=== PATIENT | female | born 1980 | race Caucasian/White ===

== ENCOUNTER 2016-04-21 05:21 | Day surgery (SDC) | payer OTHER ==
[2016-04-19 12:47] LABS: HEMATOCRIT 40.5 % (36.0-47.0); HEMOGLOBIN 13.4 g/dL (12.0-15.5); HGB HCT DIFFERENCE -0.3; MEAN CORPUSCULAR HEMOGLOBIN 27.1 pg (27.0-33.4); MEAN CORPUSCULAR HGB CONC 33.1 g/dL (32.0-36.0); MEAN CORPUSCULAR VOLUME 82 fl (80-97); RED BLOOD COUNT 4.93 10^6/uL (3.72-5.28); RED CELL DISTRIBUTION WIDTH 14.4 % (11.5-14.0); WHITE BLOOD COUNT 7.7 10^3/uL (4.0-10.5)
[2016-04-19 13:09] LABS: ALANINE AMINOTRANSFERASE 31 U/L (9-52); ALKALINE PHOSPHATASE 73 U/L (38-126); ANION GAP 12 (5-19); ASPARTATE AMINO TRANSFERASE 30 U/L (14-36); BILIRUBIN,TOTAL 0.5 mg/dL (0.2-1.3); BLOOD UREA NITROGEN 9 mg/dL (7-20); CALCIUM 9.5 mg/dL (8.4-10.2); CARBON DIOXIDE 27 mmol/L (22-30); CHLORIDE 105 mmol/L (98-107); CREATININE RESULT 0.77 mg/dL (0.52-1.25); GLUCOSE 80 mg/dL (75-110); POTASSIUM 4.5 mmol/L (3.6-5.0); SODIUM 143.5 mmol/L (137-145); TOTAL PROTEIN 7.2 g/dL (6.3-8.2)
[~2016-04-21 05:21] MED LIST: CEFAZOLIN SODIUM 1 GM in DEXTROSE 5%-WATER 50 ML IV PRN; LACTATED RINGERS 1000 ML IV PRN
[2016-04-21 06:12] LABS: APPEARANCE,URINE SLIGHTLY-CLOUDY; BILIRUBIN,URINE NEGATIVE (NEGATIVE); GLUCOSE, URINE NEGATIVE (NEGATIVE); KETONES,URINE NEGATIVE (NEGATIVE); LEUKOCYTE ESTERASE,URINE MODERATE (NEGATIVE); NITRITE,URINE NEGATIVE (NEGATIVE); PROTEIN,URINE NEGATIVE (NEGATIVE); URINE SPECIFIC GRAVITY 1.017; UROBILINOGEN,URINE NEGATIVE mg/dL (<2.0)
[2016-04-21] MEDS ORDERED: METHYLENE BLUE INJ/PF 10 MG/1 ML SDV ONE (06:24)
[2016-04-21] MEDS ORDERED: FENTANYL CITRATE INJ/PF 250 MCG/5 ML AMPULE ONE (06:26)
[2016-04-21] MEDS ORDERED: MIDAZOLAM 2 MG/2 ML INJ ONE (06:27)
[2016-04-21] MEDS ORDERED: ACETAMINOPHEN 100 ML IV ONE ×2 (06:27→16:00)
[2016-04-21] MEDS ORDERED: FENTANYL CITRATE INJ/PF 100 MCG/2 ML AMPUL ONE ×3 (06:27→10:47)
[2016-04-21] MEDS ORDERED: EPHEDRINE SULFATE INJ 50 MG/1 ML AMPULE ONE (06:27)
[2016-04-21] MEDS ORDERED: PROPOFOL INJ 200 MG/20 ML VIAL IV ONE (06:27)
[2016-04-21] MEDS ORDERED: DEXMEDETOMIDINE INJ 80 MCG/20 ML VIAL IV ONE (06:28)
[2016-04-21] MEDS ORDERED: MORPHINE SULFATE 10 MG/ML INJ ONE (06:28)
[2016-04-21] MEDS ORDERED: BUPIVACAINE HCL 0.25 % INJ/PF (2.5 MG/1 ML) 30 ML VIAL ONE (07:59)
[2016-04-21] MEDS ORDERED: PROMETHAZINE HCL INJ 25 MG/1 ML VIAL IV PRN ×2 (08:20)
[2016-04-21] MEDS ORDERED: FENTANYL CITRATE INJ/PF 100 MCG/2 ML AMPUL IV PRN ×3 (08:20)
[2016-04-21] MEDS ORDERED: OXYCODONE-ACETAMINOPHEN 5-325 MG TABLET PO PRN ×2 (08:20)
[2016-04-21] MEDS ORDERED: MEPERIDINE HCL/PF INJ 25 MG/1 ML DISP.SYRIN IV PRN (08:20)
[2016-04-21] MEDS ORDERED: DIPHENHYDRAMINE HCL 50 MG/ML VIAL IV PRN (08:20)
[2016-04-21] MEDS ORDERED: RINGERS SOLUTION,LACTATED 1,000 ML IV PRN (11:46)
--- NOTE | 2016-04-21 11:58 | OPERATIVE REPORT E ---
Operative Report NAME: KAELYN DIAZ : 1980 AGE: 35Y DATE OF SURGERY: 04/21/2016 ROOM: PREOPERATIVE DIAGNOSES: 1. Abnormal uterine bleeding. 2. Pelvic pain. POSTOPERATIVE DIAGNOSES: 1. Abnormal uterine bleeding. 2. Pelvic pain. 3. Pelvic congestion syndrome. 4. Pelvic adhesion disease. PROCEDURE: Robotic assisted total laparoscopic hysterectomy with bilateral salpingectomy and lysis of adhesions. SURGEON: QUE WILSON M.D. ANESTHESIA: Dr. Rivera with general. FINDINGS: Dense adhesions of the bladder to the anterior surface of the uterus. Significant pelvic varices are indicative of pelvic congestion syndrome. Normal ovaries. Normal appearing fallopian tubes. Adhesions of the left pelvic side wall to the lower segment of the descending colon. ESTIMATED BLOOD LOSS: 200 mL. SPECIMENS REMOVED: Uterus, cervix, and bilateral fallopian tubes. PROCEDURE IN DETAIL: The patient was taken to the operating room and prepared and draped in a normal sterile fashion in the dorsal lithotomy position in [facility]. A Schulz catheter was placed to gravity under sterile conditions and a sterile speculum was placed into the vagina. The cervix was grasped with a single-toothed tenaculum. I had difficulty with sounding the uterus due to stenosis and I dilated as much as I could to accommodate the [employer] uterine manipulator, which was placed with some difficulty but it did not appear to perforate at that time. Instruments were removed. Gloves were changed and attention was turned to the upper portion of the case. An umbilical skin incision was made to accommodate the GelPOINT port. The GelPOINT was placed with some difficulty due to the patient's body habitus but once it was placed, we were able to place the camera port and AirSeal through the GelPOINT without difficulty and inflate the abdomen to approximately 15 mmHg. The camera was introduced with the above findings noted and the patient was placed in steep Trendelenburg. Under direct visualization, two 5 mm ports were placed on either side of the umbilicus approximately 10 cm from the umbilicus. Using a blunt probe, the bowel was swept away carefully and the above findings were again noted. The decision was made to proceed with the robot as I felt that I would be able to manipulate the uterus well even though the uterine manipulator was not ideally placed. I also felt that the adhesions could be taken down more easily with the robot. So the robot was docked and the vessel sealer was placed on the patient's left and then monopolar scissors were placed on the patient's right. I then descrubbed and sat down at the console where beginning with the pelvic wall adhesions of the lower descending colon, I peeled the filmy adhesions off with some blunt dissection and some sharp dissection using monopolar scissors with good hemostasis. The left fallopian tube was then grasped with the vessel sealer and the monopolar scissors were used to dissect the fallopian tube away from the ovary carefully as there was some significant adhesions of the fallopian tube to the ovary, but this was able to be carefully, bluntly, and sharply dissected with the monopolar scissors and the mesosalpinx was divided and amputated from the uterus using the monopolar scissors and removed through the accessory port. The rest of the fallopian tube was then dissected away from the ovary to the uterine fundus and once the uterine fundus was accessible, I was able to use the vessel sealer to begin skeletonization of the uterine arteries on the left. Once I felt that I was almost to the bladder, I decided to go to the patient's right and I repeated this procedure with the fallopian tube and removed it through the accessory port. I tried to identify the utero-ovarian ligament which was densely adhesed as well and very thickened due to the pelvic congestion syndrome. I was able to transect the utero-ovarian ligament with care using the vessel sealer and hugging close to the uterus as I could. I then continued to skeletonize and transect the uterine arteries down to the level of the bladder. Once I had achieved what I felt was the bladder flap, I then began dissecting the adhesions away from the cervix using both blunt and sharp dissection with the monopolar scissors. Once I was able to identify the tip of the uterine manipulator which was in the thinnest portion of the cervix and was evident to be possibly perforating, I continued with trying to identify the [employer]care cup in order to begin the colpotomy. I continued to transect the uterine arteries carefully using the vessel sealer and keeping good hemostasis. I did make one small cut just below the tip of the uterine manipulator in order to help me with identification of the cup. Once this was performed, I was able to identify the position of the cup more easily and once I was able to confirm the position of the cup, I began my colpotomy with the monopolar scissors on the left and transected circumferentially, following all the around using the monopolar scissors. Once the specimen was completely freed, the specimen was removed through the vagina without difficulty using tenaculum on the cervix. The instruments were then changed out to a David Needle Dispenser Operator and a Prograf. The peritoneal cavity was copiously irrigated and suctioned. A Veress needle was introduced through the assistance port and the vaginal cuff was closed using the V-Loc suture with good hemostasis noted. The ureters were inspected and found to be peristalsing normally over the pelvic brim and I did observe this several times during the case. Once I had the vaginal cuff closed, I did re-inspect the pelvic brim and found that the ureters were peristalsing normally and there were no signs of hydroureter. We watched this for a little while to be sure, and there were no signs of hydroureter and the patient was making urine in her Schulz tubing. The peritoneal cavity was then copiously irrigated once more and suctioned and good hemostasis was noted throughout the peritoneal cavity. The robot was undocked, the instruments were removed, the ports were removed under direct visualization with good hemostasis. the GelPOINT was then removed without difficulty. The fascia was closed at the umbilical incision where the GelPOINT was using 0 Vicryl on a UR6 needle. The subcutaneous layer of this incision was also closed with plain catgut and the skin was closed at all 4 incisions using 4-0 Vicryl. The patient tolerated the procedure well. Sponge, lap, and needle counts were correct x2. The Schulz was removed at the end of the procedure before the patient went to PACU. She went to PACU in stable condition without difficulty. DICTATING PHYSICIAN: QUE WILSON M.D. [id number] PHY#: [id number] ID: [id number] JOB#: [id number] ACCT: [id number] cc:QUE WILSON M.D. >
[2016-04-21] MEDS: OXYCODONE-ACETAMINOPHEN 5-325 MG TABLET PO PRN ×3 (12:32→23:36)
[2016-04-21] MEDS ORDERED: GLYCERIN/WITCH HAZEL LEAF 1 EACH MED..PAD TP PRN (12:49)
[2016-04-21] MEDS ORDERED: KETOROLAC TROMETHAMINE 60 MG/2 ML SDV ONE (14:03)
[2016-04-21] MEDS ORDERED: NEOSTIGMINE METHYLSULFATE 10 MG/10 ML VIAL ONE (14:03)
[2016-04-21] MEDS ORDERED: DEXAMETHASONE SOD PHOSPHATE INJ 4 MG/1 ML VIAL ONE (14:03)
[2016-04-21] MEDS ORDERED: ROCURONIUM BROMIDE INJ 50 MG/5 ML VIAL IV ONE (14:03)
[2016-04-21] MEDS ORDERED: SUCCINYLCHOLINE CHLORIDE INJ 200 MG/10 ML VIAL ONE (14:03)
[2016-04-21] MEDS ORDERED: LIDOCAINE 2% INJ-PF (20 MG/ML) 10 ML AMPUL ONE (14:03)
[2016-04-21] MEDS ORDERED: GLYCOPYRROLATE INJ 0.4 MG/2 ML VIAL ONE (14:03)
[2016-04-21] MEDS ORDERED: ONDANSETRON HCL INJ/PF 4 MG/2 ML SDV ONE (14:03)
[2016-04-21] MEDS: KETOROLAC TROMETHAMINE INJ/PF 30 MG/1 ML SDV IV SCH (17:14)
[2016-04-21] MEDS ORDERED: INFLUENZA ADLT QUAD (36MOS+) 2016-17 VAC 0.5 ML SYR IM PRN (18:47)
[2016-04-22] MEDS: KETOROLAC TROMETHAMINE INJ/PF 30 MG/1 ML SDV IV SCH ×2 (01:42→09:47)
[2016-04-22 07:15] LABS: HEMATOCRIT 31.8 % (36.0-47.0); HGB HCT DIFFERENCE 0.3; MEAN CORPUSCULAR HEMOGLOBIN 27.1 pg (27.0-33.4); MEAN CORPUSCULAR HGB CONC 33.6 g/dL (32.0-36.0); MEAN CORPUSCULAR VOLUME 81 fl (80-97); RED BLOOD COUNT 3.94 10^6/uL (3.72-5.28)
[2016-04-22 07:22] LABS: HEMOGLOBIN 10.7 g/dL (12.0-15.5)
[2016-04-22] MEDS ORDERED: GUAIFENESIN 600 MG TABLET.SA PO SCH (10:00)
[2016-04-22] MEDS ORDERED: IBUPROFEN 800 MG TABLET PO PRN (10:01)
--- NOTE | 2016-04-22 12:47 | PDOC DISCHARGE SUMMARY ---
General - Admit/Disc Date/PCP Admission Date/Primary Care Provider: JOSH DE LA PAZ PA-C Discharge Date: 04/22/16 - Discharge Diagnosis (1) Abnormal uterine and vaginal bleeding, unspecified Is this a current diagnosis for this admission?: Yes (2) Anemia Is this a current diagnosis for this admission?: Yes (3) Pelvic pain Is this a current diagnosis for this admission?: Yes (4) Pelvic adhesive disease Is this a current diagnosis for this admission?: Yes - Additional Information Home Medications: Citalopram Hydrobromide [Citalopram HBr] 40 mg PO DAILY 04/13/16 Dextroamphetamine/Amphetamine [Adderall 10 mg Tablet] 10 - 30 mg PO DAILY Lamotrigine [Lamictal] 25 mg PO DAILY 04/13/16 History of Present Illness History of Present Illness: KAELYN DIAZ is a 35 year old female Hospital Course Hospital Course: had POD #`1 congestion. CXR negative. decongestant ordered and doing well. adequate UOP. tolerating regular diet Physical Exam - Physical Exam Vital Signs: Temp Pulse Resp BP Pulse Ox 98.4 F 78 20 116/64 99 04/22/16 03:40 04/22/16 03:40 04/22/16 03:40 04/22/16 03:40 04/22/16 03:40 Intake & Output 04/21/16 04/22/16 04/23/16 06:59 06:59 06:59 Intake Total 1000 3050 Output Total 1100 Balance 1000 1950 Weight 113.4 kg General appearance: PRESENT: no acute distress Head exam: PRESENT: atraumatic Vascular exam: PRESENT: normal capillary refill GI/Abdominal exam: PRESENT: normal bowel sounds, soft, other - incisions clean dry and intact Extremities exam: PRESENT: full ROM Neurological exam: PRESENT: alert, awake, oriented to person, oriented to place , oriented to time Result Laboratory Results: 04/22/16 06:49 04/19/16 11:20 04/22/16 06:49 WBC 12.0 H RBC 3.94 Hgb 10.7 L D Hct 31.8 L MCV 81 MCH 27.1 MCHC 33.6 RDW 14.0 Plt Count 200 Impressions: Chest X-Ray 04/22/16 00:00 IMPRESSION: NO SIGNIFICANT RADIOGRAPHIC FINDING IN THE CHEST. Plan Discharge Plan: discharge home. follow up scheduled at 2 weeks Time Spent: Less than 30 Minutes
[2016-04-22 13:29] VITALS: BP 113/69
== END 2016-04-22 13:55 | disposition home or self-care (01) ==
LOC: OROUT 05:21 → 2N 11:32 → OROUT 04-22 13:55
PROVIDERS: ATTEND Obstetrics & Gynecology
PROC: 0UTC4ZZ Resection of Cervix, Percutaneous Endoscopic Approach (ICD-10-PCS; 2016-04-21)
PROC: 0UT74ZZ Resection of Bilateral Fallopian Tubes, Percutaneous Endoscopic Approach (ICD-10-PCS; 2016-04-21)
PROC: 8E0W4CZ Robotic Assisted Procedure of Trunk Region, Percutaneous Endoscopic Approach (ICD-10-PCS; 2016-04-21)
PROC: 0UT94ZZ Resection of Uterus, Percutaneous Endoscopic Approach (ICD-10-PCS; principal; 2016-04-21 07:30)
DX: N92.0 Excessive and frequent menstruation with regular cycle (principal); R10.2 Pelvic and perineal pain; N93.9 Abnormal uterine and vaginal bleeding, unspecified; N94.89 Other specified conditions associated with female genital organs and menstrual cycle; N73.6 Female pelvic peritoneal adhesions (postinfective); N72 Inflammatory disease of cervix uteri; Z79.899 Other long term (current) drug therapy; Z88.5 Allergy status to narcotic agent
CPT/HCPCS: 58571; S2900; 36415; 71020; 80053; 81001; 81025; 840; 85027; 86850; 86900; 86901; 88307; J0131; J0330; J0690; J1100; J1885; J2250; J2270; J2405; J2704; J3010; J3490; J7120; Q9968

== ENCOUNTER 2017-12-28 20:30 | Emergency (ER) | payer OTHER ==
[2017-12-28] MEDS ORDERED: BENZONATATE 100 MG CAPSULE PO ONE (21:26)
[2017-12-28] MEDS ORDERED: NORMAL SALINE 1000 ML 1,000 ML IV ONE (21:26)
--- NOTE | 2017-12-28 21:28 | ER Document Report ---
HPI - HPI Pain Level: 3 Notes: Patient is a 37-year-old female who presents with chief complaint of cough, body aches and fever. Patient reports the cough and body ache started on Monday , the fever started today. Patient concerned she may have the flu. Patient denies any nausea, vomiting or diarrhea. - NEURO Neurology: REPORTS: Headache - CARDIOVASCULAR Cardiovascular: REPORTS: Chest pain - RESPIRATORY Respiratory: REPORTS: Coughing - REPRODUCTIVE LMP: na Reproductive: DENIES: : Past Medical History - General Information source: Patient - Social History Smoking Status: Current Every Day Smoker Frequency of alcohol use: Rare Drug Abuse: None Family History: Reviewed & Not Pertinent Patient has suicidal ideation: No Patient has homicidal ideation: No - Past Medical History Cardiac Medical History: Denies: Hx Coronary Artery Disease, Hx Heart Attack, Hx Hypertension Pulmonary Medical History: Denies: Hx Asthma, Hx Bronchitis, Hx COPD, Hx Pneumonia Neurological Medical History: Denies: Hx Cerebrovascular Accident, Hx Seizures Renal/ Medical History: Reports: Hx Ovarian Cysts. Denies: Hx Peritoneal Dialysis Musculoskeletal Medical History: Denies Hx Arthritis Psychiatric Medical History: Reports: Hx Bipolar Disorder Denies: Hx Depression Past Surgical History: Reports: Hx Section - x2 - Immunizations Hx Diphtheria, Pertussis, Tetanus Vaccination: Yes Vertical Provider Document - CONSTITUTIONAL Notes: PHYSICAL EXAMINATION: GENERAL: Well-appearing, well-nourished and in no acute distress. HEAD: Atraumatic, normocephalic. EYES: Pupils equal round extraocular movements intact, conjunctiva are normal. ENT: Nares patent NECK: Normal range of motion LUNGS: No respiratory distress Musculoskeletal: Normal range of motion NEUROLOGICAL: Normal speech, normal gait. PSYCH: Normal mood, normal affect. SKIN: Warm, Dry, normal turgor, no rashes or lesions noted. - INFECTION CONTROL TRAVEL OUTSIDE OF THE [place] IN LAST 30 DAYS: No Course - Re-evaluation Re-evalutation: Patient's assessment is completely normal. Patient does have mild tachycardia on her presenting vital signs. Patient will be given a 1 L normal saline bolus as well as Tessalon Perles for her cough. Influenza test pending. Influenza negative. Patient reports she is feeling much improved after the 1 L normal saline bolus. Tachycardia has resolved, patient is afebrile. Patient will be discharged home in stable condition with likely viral illness. - Vital Signs Vital signs: Temp Pulse Resp BP Pulse Ox 99.2 F 115 H 18 127/75 H 97 12/28/17 20:35 12/28/17 20:35 12/28/17 20:35 12/28/17 20:35 12/28/17 20:35 Discharge - Discharge Clinical Impression: Viral illness, Cough Condition: Stable Disposition: HOME, SELF-CARE Additional Instructions: Viral Syndrome The physician has diagnosed a viral infection. Viruses not only cause "colds," but can cause many different symptoms including generalized aching, fever, headache, cough, diarrhea, nausea, vomiting, and fatigue. The treatment, for the most part, is simply relief of symptoms. This means that antibiotics are usually not given. Rest, fluids, pain medications and, occasionally, medication for the specific symptoms that are most bothersome will be prescribed. Use good handwashing to avoid passing the virus to others. Shared toys should be cleaned with disinfectant. Clean the toilets, sinks, and counter surfaces in bathrooms. Launder clothing in hot water. Contact the physician if you develop any new or unusual symptoms such as severe headache, stiff neck, high fever, chest pain, productive cough, or shortness of breath. You should be rechecked if you don't see marked improvement within seven to 10 days. Please take medication as prescribed. Drink plenty of fluids, rest. Wash your hands. Follow-up with primary care in the next 5-7 days if not improving.* Prescriptions: Benzonatate [Tessalon Perles 100 mg Capsule] 100 mg PO Q8HP PRN #40 capsule PRN Reason: Referrals: JOSH DE LA PAZ PA-C [Primary Care Provider] - Follow up as needed
[2017-12-28 22:07] LABS: A TYPE INFLUENZA AG NEGATIVE (NEGATIVE); B INFLUENZA AG NEGATIVE (NEGATIVE)
[2017-12-28 23:34] VITALS: BP 120/80
== END 2017-12-28 23:34 | disposition home or self-care (01) ==
LOC: ER 20:30
DX: B34.9 Viral infection, unspecified (principal); R05 Cough; M79.10 Myalgia, unspecified site; R50.9 Fever, unspecified; F17.200 Nicotine dependence, unspecified, uncomplicated
CPT/HCPCS: 99283; 96360; 96361; 87804; J7030

== ENCOUNTER → 2019-10-04 | Outpatient (CLI) | payer OTHER ==
--- NOTE | 2019-10-04 17:47 | RADIOLOGY REPORT (SQ) ---
EXAM DESCRIPTION: KNEE LEFT 3 VIEWS IMAGES COMPLETED DATE/TIME: 10/04/2019 4:57 pm REASON FOR STUDY: M25.562 PAIN IN LEFT KNEE M25.562 PAIN IN LEFT KNEE COMPARISON: None. NUMBER OF VIEWS: Three views. TECHNIQUE: AP, lateral, and sunrise patella radiographic images acquired of the left knee. LIMITATIONS: None. FINDINGS: MINERALIZATION: Normal. BONES: No acute fracture or dislocation. No worrisome bone lesions. JOINT: No effusion. SOFT TISSUES: No soft tissue swelling. No radio-opaque foreign body. OTHER: No other significant finding. IMPRESSION: NEGATIVE STUDY OF THE LEFT KNEE. NO RADIOGRAPHIC EVIDENCE OF ACUTE INJURY. TECHNICAL DOCUMENTATION: JOB ID: [id number] 2010 [employer]- All Rights Reserved Reading location - IP/workstation name: [email or web address]
== END ==
LOC: RAD 16:23
PROVIDERS: ATTEND Registered Nurse
DX: M25.562 Pain in left knee (principal)